=== PATIENT | female | born 1995 | race Caucasian/White ===

== ENCOUNTER 2017-11-09 05:41 | Day surgery (SDC) | payer BC ==
[~2017-11-09] VITALS: Ht 177.8 cm; Wt 56.7 kg
--- NOTE | ~2017-11-09 | O ---
[facility] [place] [address] OPERATIVE REPORT Name: AGAPITO ROWAN Room #: 150-9 [facility] M.R.#: [id number] Admission: 11/09/17 Attend Phys: Irvin Jasso MD Discharge: Date of : 89 Report #: [id number] THIS REPORT FOR: //name// CC: NO JOHANA Jasso DATE OF SERVICE: 11/09/2017 PREOPERATIVE DIAGNOSIS: Ethmoid sinusitis with orbital mucocele. POSTOPERATIVE DIAGNOSIS: Ethmoid sinusitis with orbital dermoid cyst. ANESTHESIA: General by laryngeal mask. OPERATIVE PROCEDURE: Left revision ethmoidectomy with orbitotomy and image guidance surgery. DESCRIPTION OF PROCEDURE: The patient was taken to the operating room and placed in the supine position. General anesthesia was induced by laryngeal mask. Once adequate general anesthesia was obtained, local nasal anesthesia was induced by submucoperiosteal injection of 1% lidocaine with 1:100,000 epinephrine and topical application of cocaine solution. The patient was then prepared and draped in a sterile manner. The patient was also calibrated to the fusion image guidance system for image guidance surgery throughout the procedure. The nasal endoscope was used to visualize the left nasal cavity and the middle turbinate was deviated medially. She had had a previous ethmoidectomy and maxillary antrostomy. I revised the ethmoidectomy by cleaning anteriorly along the lamina papyracea and then finding the frontal duct, I took down a couple of bony septa to open up air cells posteriorly. I located the lamina papyracea and peeled mucosa off of it. I was able to fracture the lamina with a ball tip seeker and then removed pieces of bone to expose the underlying periorbita. There was one area of the periorbita that was opened in order to visualize the orbital cavity. Dr. Jasso was in the room and palpated the eye and orbit and we could see the orbital fat moving along with what appeared to be a mass within the orbit. At this point, Dr. Jasso performed an orbitotomy and excision of a dermoid cyst, which will be dictated in a separate procedure. After his procedure, I looked in the nose once again and placed FloSeal into the ethmoid cavity and middle meatus for hemostasis. The patient tolerated the procedure well. Blood loss was approximately 10 mL. The patient was then awoken and taken to the recovery room in stable condition for postoperative monitoring. By: 1440 1457 Constantin Landis MD /nt
--- NOTE | ~2017-11-09 | H ---
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 I performed an ethmoidectomy with a drainage procedure through the nose, but the mucocele has recurred. She had a CT scan of her sinuses, which shows mucous membrane thickening in the ethmoid sinuses on both sides with mucous membrane thickening on the right side in the maxillary and sphenoid sinuses and evidence of previous surgery on the left. There is an orbital cyst in the medial aspect of the left orbit. PAST MEDICAL HISTORY: Otherwise, not significant. MEDICATIONS: Her only medication is control. ALLERGIES: She has no known drug allergies. PHYSICAL EXAMINATION: Her nose was clear. Her oropharynx and oral cavity were normal. 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 PLAN: Revision ethmoidectomy on the left, maxillary antrostomy on the right, ethmoidectomy right and right sphenoidotomy combined approach to the orbital mucocele with Dr. Jasso. <ELECTRONICALLY SIGNED> By: Constantin Landis MD 11/09/17 1428 1431 1458 Constantin Landis MD /nt
--- NOTE | ~2017-11-09 | O ---
[facility] [place] [address] OPERATIVE REPORT Name: AGAPITO ROWAN Room #: 150-9 [facility] M.R.#: [id number] Admission: 11/09/17 Attend Phys: Irvin Jasso MD Discharge: Date of : 89 Report #: [id number] THIS REPORT FOR: //name// CC: Gabriel Tan MD NO PCP Constantin Jasso DATE OF SERVICE: 11/09/2017 PREOPERATIVE DIAGNOSIS: Presumed left orbital mucocele with sinusitis. POSTOPERATIVE DIAGNOSIS: Left orbital dermoid. PROCEDURE: Left transfrontal orbitotomy with excision of lesion. SURGEON: Irvin Jasso M.D. AVIONICS REPAIR TECHNICIAN: Constantin Landis M.D. ANESTHESIA: General. COMPLICATIONS: None. INDICATIONS FOR SURGERY: This pleasant 22-year-old girl has a history of a mass in her superior medial left orbit that gets larger and smaller over time. Imaging shows that she has an opacity in her left ethmoidal sinuses superiorly in the same area of the mass. The mass is thought to most likely be a mucocele. It has been approached previously except the lesion in the orbit did not decompress with adequate sinus surgery. She presents today for second attempt at adequate sinus drainage and a transfrontal orbitotomy if it cannot be achieved. Informed consent was obtained to include but not limited to potential risk for loss of vision, bleeding, infection, failure to improve the problem, the potential need for further surgery or treatment. DESCRIPTION OF PROCEDURE: The patient was taken to the operating room where general anesthesia was administered. Dr. Landis then undertook beginning of the case in a standard fashion with image guidance approaching her left medial orbit. He took down all of the ethmoidal air cells down and on to the lamina of the orbit. He even took some bone off of the orbit in the area where image guidance showed the lesion was present. The mass in the orbit did not decompress. It was thought at this point that the lesion was most likely to be a mucocele that was then isolated in the orbit so it was going to be approached to be drained. [facility] [address] [place] [address] OPERATIVE REPORT Name: AGAPITO ROWAN Room #: 150-9 [facility] M.R.#: [id number] Admission: 11/09/17 Attend Phys: Irvin Jasso MD Discharge: Date of : 89 Report #: [id number] The patient had been adequately prepped and draped for this procedure at the beginning of the procedure prior to the sinus intervention. A curvilinear incision was then outlined with a fine tip skin marking pen and subsequently made with a Gabi scissor. The dissection was again carried down through the orbicularis muscle until the cyst was isolated. As the cyst was found, it was immediately apparent that this was a dermoid cyst and not a mucocele. The dissection was carried around 360 degrees around the lesion to allow it to be drawn anteriorly. It was excised rather completely. It was able to be utilizing primarily blunt with some sharp dissection and minimal use of any cautery. The superior oblique muscle was specifically left out of the dissection to not be unduly manipulated. The wound was then irrigated, suctioned, and re-dried. The incision was then closed with interrupted 6-[address] Ramon then readdressed the sinus portion of the procedure. The patient was subsequently transported to the recovery area having tolerated the procedure well with the finding being both concomitant sinus disease and an orbital dermoid that apparently are unrelated. By: 1427 1442 Irvin Jasso MD /nt
[~2017-11-09 05:41] MED LIST: LOW-OGESTREL1 EACH PO; ZYRTEC10 M5 PO
[2017-11-09 12:13] VITALS: BP 113/72
== END 2017-11-09 15:25 | disposition home or self-care (01) ==
LOC: TBA 05:41 → OR 05:41
DX: J32.2 Chronic ethmoidal sinusitis (principal); H05.812 Cyst of left orbit; Z91.040 Latex allergy status; Z98.890 Other specified postprocedural states
CPT/HCPCS: 50010; 50101; 50286; 50386; 50398; 50573; 51636; 51751; 52290; 52291; 70005